=== PATIENT | male | born 1970 | race Asian ===

== ENCOUNTER 2019-06-17 16:37 | Emergency (ER) | payer BC ==
[~2019-06-17] VITALS: Ht 172.7 cm; Wt 78.9 kg
[~2019-06-17 16:37] MED LIST: ZOL50 PO; [UNRECOGNIZED DRUG - CODE] PO
[2019-06-17 16:42] VITALS: Ht 172.7 cm; Wt 78.9 kg
[2019-06-17 17:14] LABS: PLATELET COUNT 310 x10^3mcL (130-400); RED CELL DISTRIBUTION WIDTH 12.7 % (11.5-14.5)
[2019-06-17 17:17] LABS: microscopic required? YES; urine erythrocyte 3+ (NEGATIVE)
[2019-06-17 17:18] LABS: CALCIUM 10.3 mg/dL (8.5-10.1); CARBON DIOXIDE 24.6 mmol/L (21-32); CREATININE SERUM 1.4 mg/dL (0.7-1.3); POTASSIUM SERUM 3.8 mmol/L (3.5-5.1)
[2019-06-17 17:24] LABS: BASOPHIL % 0 % (0-2)
[2019-06-17 17:25] LABS: ALBUMIN 4.2 g/dL (3.4-5.0); BILIRUBIN TOTAL 0.35 mg/dL (0.20-1.00); TOTAL PROTEIN, SERUM 8.1 g/dL (6.4-8.2)
[2019-06-17 20:21] VITALS: BP 125/87
== END 2019-06-17 20:21 | disposition home or self-care (01) ==
LOC: ED 16:37
PROVIDERS: Emergency Medicine
DX: N20.0 Calculus of kidney (principal); R31.9 Hematuria, unspecified; G43.909 Migraine, unspecified, not intractable, without status migrainosus; I45.10 Unspecified right bundle-branch block; Z88.2 Allergy status to sulfonamides
CPT/HCPCS: J2270; J2405; J3010; J7030; Q0092